=== PATIENT | male | born 1945 | race Caucasian/White ===

== ENCOUNTER → 2016-06-16 | Outpatient (CLI) | payer MEDICARE ==
[2016-06-16 17:53] LABS: ABSOLUTE BASOPHILS # (AUTO) 0.1 10^3/uL (0.0-0.2); ABSOLUTE EOSINOPHILS # (AUTO) 0.2 10^3/uL (0.0-0.6); ABSOLUTE LYMPHOCYTES (AUTO) 1.3 10^3/uL (0.5-4.7); ABSOLUTE MONOCYTES (AUTO) 0.4 10^3/uL (0.1-1.4); ABSOLUTE NEUT (AUTO) 5.3 10^3/uL (1.7-8.2); BASOPHILS % (AUTO) 0.9 % (0-2); EOSINOPHILS % (AUTO) 2.4 % (0-6); HEMATOCRIT 44.2 % (37.9-51.0); HGB HCT DIFFERENCE 0.8; LYMPHOCYTES % (AUTO) 18.1 % (13-45); MEAN CORPUSCULAR HEMOGLOBIN 30.3 pg (27.0-33.4); MEAN CORPUSCULAR HGB CONC 34.1 g/dL (32.0-36.0); MEAN CORPUSCULAR VOLUME 89 fl (80-97); MONOCYTES % (AUTO) 6.1 % (3-13); RED BLOOD COUNT 4.97 10^6/uL (4.35-5.55); RED CELL DISTRIBUTION WIDTH 13.3 % (11.5-14.0); SEGMENTED NEUTROPHILS % (AUTO) 72.5 % (42-78); WHITE BLOOD COUNT 7.3 10^3/uL (4.0-10.5)
== END ==
LOC: OD 15:56
PROVIDERS: ATTEND Specialist
DX: R10.9 Unspecified abdominal pain (principal); R97.0 Elevated carcinoembryonic antigen [CEA]
CPT/HCPCS: 36415; 82378; 85025

== ENCOUNTER 2016-11-29 12:34 | Emergency (ER) | payer MEDICARE ==
[2016-11-29] MEDS ORDERED: ASPIRIN 81 MG TABLET, CHEWABLE PO ONE (12:57)
--- NOTE | 2016-11-29 13:16 | EKG REPORT ---
SEVERITY:- OTHERWISE NORMAL ECG - SINUS RHYTHM BORDERLINE LEFT AXIS DEVIATION : Confirmed by: Jimmy Buenrostro MD 29-Nov-2016 13:16:01
--- NOTE | 2016-11-29 13:33 | ER Document Report ---
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 He states about 6 years ago he did have a heart catheterization that was unremarkable for any significant blockage. No other history of heart disease. TRAVEL OUTSIDE OF THE [place] IN LAST 30 DAYS: No - Related Data Allergies/Adverse Reactions: Sulfa (Sulfonamide Antibiotics) Allergy (Verified 11/07/14 15:02) Generalized rash Past Medical History - Social History Frequency of alcohol use: Daily, 4-5 cocktails Drug Abuse: None - Past Medical History Cardiac Medical History: Reports: Hx Hypercholesterolemia - DX A YEAR AGO, Hx Hypertension - ON MEDS Denies: Hx Heart Attack Pulmonary Medical History: Reports: Hx Pneumonia - OVER 40 YEARS AGO Denies: Hx Asthma Neurological Medical History: Denies: Hx Cerebrovascular Accident, Hx Seizures Renal/ Medical History: Denies: Hx Peritoneal Dialysis GI Medical History: Reports: Hx Gastroesophageal Reflux Disease - DX 20 YEARS AGO. Denies: Hx Hepatitis, Hx Hiatal Hernia, Hx Ulcer Infectious Medical History: Denies: Hx Hepatitis Past Surgical History: Reports: Hx Appendectomy, Hx Cardiac Catheterization, Hx Cholecystectomy, Hx Tonsillectomy. Denies: Hx Adenoidectomy, Hx Open Heart Surgery, Hx Pacemaker. Comment Only: Hx Abdominal Surgery - APPENDIX Physical Exam - Vital signs Vitals: Temp Pulse Resp BP Pulse Ox 98.9 F 84 18 113/85 97 11/29/16 12:54 11/29/16 12:54 11/29/16 12:54 11/29/16 12:54 11/29/16 12:54 Course - Vital Signs Vital signs: Temp Pulse Resp BP Pulse Ox 98.9 F 84 18 113/85 97 11/29/16 12:54 11/29/16 12:54 11/29/16 12:54 11/29/16 12:54 11/29/16 12:54
[2016-11-29 14:10] LABS: ABSOLUTE EOSINOPHILS # (AUTO) 0.1 10^3/uL (0.0-0.6); ABSOLUTE LYMPHOCYTES (AUTO) 1.5 10^3/uL (0.5-4.7); ABSOLUTE MONOCYTES (AUTO) 0.6 10^3/uL (0.1-1.4); BASOPHILS % (AUTO) 0.6 % (0-2); HEMATOCRIT 47.6 % (37.9-51.0); HEMOGLOBIN 16.1 g/dL (13.5-17.0); HGB HCT DIFFERENCE 0.7; LYMPHOCYTES % (AUTO) 20.2 % (13-45); MEAN CORPUSCULAR HEMOGLOBIN 30.8 pg (27.0-33.4); MEAN CORPUSCULAR HGB CONC 33.8 g/dL (32.0-36.0); MEAN CORPUSCULAR VOLUME 91 fl (80-97); MONOCYTES % (AUTO) 8.4 % (3-13); RED BLOOD COUNT 5.22 10^6/uL (4.35-5.55); RED CELL DISTRIBUTION WIDTH 13.1 % (11.5-14.0); SEGMENTED NEUTROPHILS % (AUTO) 68.8 % (42-78); WHITE BLOOD COUNT 7.2 10^3/uL (4.0-10.5)
--- NOTE | 2016-11-29 14:22 | RADIOLOGY REPORT (SQ) ---
EXAM DESCRIPTION: CHEST PA/LAT COMPLETED DATE/TIME: 11/29/2016 2:04 pm REASON FOR STUDY: left cp COMPARISON: None. EXAM PARAMETERS: NUMBER OF VIEWS: two views TECHNIQUE: Digital Frontal and Lateral radiographic views of the chest acquired. RADIATION DOSE: NA LIMITATIONS: none FINDINGS: LUNGS AND PLEURA: No opacities, masses or pneumothorax. No pleural effusion. MEDIASTINUM AND HILAR STRUCTURES: No masses or contour abnormalities. HEART AND VASCULAR STRUCTURES: Heart normal size. No evidence for failure. BONES: Osteoporotic. HARDWARE: Clips right upper quadrant post cholecystectomy. OTHER: No other significant finding. IMPRESSION: NO SIGNIFICANT RADIOGRAPHIC FINDING IN THE CHEST. TECHNICAL DOCUMENTATION: JOB ID: [id number] [email or web address] All Rights Reserved
[2016-11-29 14:37] LABS: ALANINE AMINOTRANSFERASE 34 U/L (21-72); ALBUMIN 4.3 g/dL (3.5-5.0); ALKALINE PHOSPHATASE 75 U/L (38-126); ANION GAP 12 (5-19); ASPARTATE AMINO TRANSFERASE 20 U/L (17-59); BILIRUBIN,DIRECT 0.3 mg/dL (0.0-0.4); BLOOD UREA NITROGEN 23 mg/dL (7-20); CALCIUM 10.6 mg/dL (8.4-10.2); CARBON DIOXIDE 24 mmol/L (22-30); CHLORIDE 107 mmol/L (98-107); GLUCOSE 97 mg/dL (75-110); POTASSIUM 4.6 mmol/L (3.6-5.0); SODIUM 142.5 mmol/L (137-145); TOTAL PROTEIN 6.9 g/dL (6.3-8.2)
--- NOTE | 2016-11-29 15:07 | ER Document Report ---
ED General - General Chief Complaint: Chest Pain > 30 Stated Complaint: CHEST PAIN Time Seen by Provider: 11/29/16 13:32 Notes: Patient states that several hours for arrival he had left-sided chest pain went to his left upper back. It was moderate. It was constant. He states it is gradually improving. He denies anything that makes the pain better except rest. He does state a deep breath or movement makes the pain worse. No cough cold or congestion. He states he did have a heart catheterization 6 years ago that was unremarkable. No evaluation since then. No history of DVTs. TRAVEL OUTSIDE OF THE [place] IN LAST 30 DAYS: No - Related Data Allergies/Adverse Reactions: Sulfa (Sulfonamide Antibiotics) Allergy (Verified 11/07/14 15:02) Generalized rash Past Medical History - Social History Smoking Status: Former Smoker Frequency of alcohol use: Daily, 4-5 cocktails Drug Abuse: None Lives with: Family Family History: Reviewed & Not Pertinent Patient has suicidal ideation: No Patient has homicidal ideation: No - Past Medical History Cardiac Medical History: Reports: Hx Hypercholesterolemia - DX A YEAR AGO, Hx Hypertension - ON MEDS Denies: Hx Heart Attack Pulmonary Medical History: Reports: Hx Pneumonia - OVER 40 YEARS AGO Denies: Hx Asthma Neurological Medical History: Denies: Hx Cerebrovascular Accident, Hx Seizures Renal/ Medical History: Denies: Hx Peritoneal Dialysis GI Medical History: Reports: Hx Gastroesophageal Reflux Disease - DX 20 YEARS AGO. Denies: Hx Hepatitis, Hx Hiatal Hernia, Hx Ulcer Infectious Medical History: Denies: Hx Hepatitis Past Surgical History: Reports: Hx Appendectomy, Hx Cardiac Catheterization, Hx Cholecystectomy, Hx Tonsillectomy. Denies: Hx Adenoidectomy, Hx Open Heart Surgery, Hx Pacemaker. Comment Only: Hx Abdominal Surgery - APPENDIX Review of Systems - Review of Systems Constitutional: denies: Chills, Fever Cardiovascular: Chest pain. denies: Orthopnea Respiratory: denies: Cough, Short of breath Gastrointestinal: denies: Abdominal pain, Vomiting Genitourinary: denies: Burning, Flank pain -: Yes All other systems reviewed and negative Physical Exam - Vital signs Vitals: Temp Pulse Resp BP Pulse Ox 98.9 F 84 18 113/85 97 11/29/16 12:54 11/29/16 12:54 11/29/16 12:54 11/29/16 12:54 11/29/16 12:54 Interpretation: Normal - General General appearance: Appears well, Alert - HEENT Head: Normocephalic, Atraumatic Eyes: Normal Pupils: PERRL - Respiratory Respiratory status: No respiratory distress Chest status: Nontender Breath sounds: Normal Chest palpation: Normal - Cardiovascular Rhythm: Regular Heart sounds: Normal auscultation Murmur: No - Abdominal Inspection: Normal Distension: No distension Bowel sounds: Normal Tenderness: Nontender Organomegaly: No organomegaly - Back Back: Normal, Nontender - Extremities General upper extremity: Normal inspection, Nontender, Normal color, Normal ROM , Normal temperature General lower extremity: Normal inspection, Nontender, Normal color, Normal ROM , Normal temperature, Normal weight bearing. No: Cole's sign - Neurological Neuro grossly intact: Yes Cognition: Normal Orientation: AAOx4 [place] Coma Scale Eye Opening: Spontaneous [place] Coma Scale Verbal: Oriented [place] Coma Scale Motor: Obeys Commands [place] Coma Scale Total: 15 Speech: Normal Motor strength normal: LUE, RUE, LLE, RLE Sensory: Normal - Psychological Associated symptoms: Normal affect, Normal mood - Skin Skin Temperature: Warm Skin Moisture: Dry Skin Color: Normal Course - Re-evaluation Re-evalutation: 11/29/16 16:09 2 sets neg. repeat ekg no mclaughlin. - Vital Signs Vital signs: Temp Pulse Resp BP Pulse Ox 98.9 F 84 18 113/85 97 11/29/16 12:54 11/29/16 12:54 11/29/16 12:54 11/29/16 12:54 11/29/16 12:54 - Laboratory Result Diagrams: 11/29/16 13:52 11/29/16 13:52 Laboratory results interpreted by me: 11/29/16 13:52 BUN 23 H Calcium 10.6 H - Diagnostic Test Radiology reviewed: Image reviewed, Reports reviewed - Chest x-ray has no significant acute pathology - EKG Interpretation by Mn EKG shows normal: Sinus rhythm Rate: Normal Rhythm: NSR Wel[place]/QRS: No: Right axis deviation, Left axis deviation When compared to previous EKG there are: No significant change Additional EKG results interpreted by me: 11/29/16 16:10 Repeat EKG shows a normal sinus rhythm. Rate is normal. There is no significant change from the previous EKG. Discharge - Discharge Clinical Impression: Acute chest pain Condition: Stable Disposition: HOME, SELF-CARE Instructions: Chest Pain of Unclear Cause ([facility]) Additional Instructions: Please follow-up with your primary care physician as soon as possible for reevaluation
[2016-11-29 16:19] VITALS: BP 115/88
--- NOTE | 2016-11-29 18:13 | EKG REPORT ---
SEVERITY:- BORDERLINE ECG - SINUS RHYTHM BORDERLINE LEFT AXIS DEVIATION NONSPECIFIC ST-T CHANGES- INFERIOR LEADS : Confirmed by: Jimmy Buenrostro MD 29-Nov-2016 18:13:06
== END 2016-11-29 16:19 | disposition home or self-care (01) ==
LOC: ER 12:34
DX: R07.9 Chest pain, unspecified (principal); Z87.891 Personal history of nicotine dependence; M54.6 Pain in thoracic spine
CPT/HCPCS: 36415; 71020; 80053; 84484; 85025; 93005; 93010; 99285

== ENCOUNTER 2017-08-29 15:58 | Emergency (ER) | payer OTHER, MEDICARE ==
[2017-08-29] MEDS ORDERED: LIDOCAINE 1%/EPINEPHRINE INJ 20 ML VIAL INJ ONE (16:57)
[2017-08-29] MEDS ORDERED: DIPH/PERTUSS(ACELL)/TETANUS VAC/PF 0.5 ML SYR (>=10YO) IM ONE ×2 (16:57→18:30)
--- NOTE | 2017-08-29 17:46 | ER Document Report ---
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 Onset: Sudden Duration: Just prior to arrival Severity: Mild to moderate Quality: Sharp Context: As above Exacerbating factor and relieving factors: None REVIEW OF SYSTEMS: CONSTITUTIONAL : Denies fever, chills, or sweats. Denies recent illness. EENT: Denies eye, ear, throat, or mouth pain or symptoms. Denies nasal or sinus congestion or discharge. Denies throat, tongue, or mouth swelling or difficulty swallowing. CARDIOVASCULAR: Denies chest pain. Denies palpitations or racing or irregular heart beat. Denies ankle edema. RESPIRATORY: Denies cough, cold, or chest congestion. Denies shortness of breath, difficulty breathing, or wheezing. GASTROINTESTINAL: Denies distention. Denies nausea, vomiting, or diarrhea. Denies blood in vomitus, stools, or per rectum. Denies black, tarry stools. Denies constipation. GENITOURINARY: Denies difficulty urinating, painful urination, burning, frequency, blood in urine, or discharge. FEMALE GENITOURINARY: Denies vaginal bleeding, heavy or abnormal periods, irregular periods. Denies vaginal discharge or odor. MUSCULOSKELETAL: Denies back or neck pain or stiffness. Denies joint pain or swelling. SKIN: Denies rash, lesions or sores. HEMATOLOGIC : Denies easy bruising or bleeding. LYMPHATIC: Denies swollen, enlarged glands. NEUROLOGICAL: Denies confusion or altered mental status. Denies passing out or loss of consciousness. Denies dizziness or lightheadedness. Denies headache. Denies weakness or paralysis or loss of use of either side. Denies problems with gait or speech. Denies sensory loss, numbness, or tingling. Denies seizures. PSYCHIATRIC: Denies anxiety or stress. Denies depression, suicidal ideation, or homicidal ideation. ALL OTHER SYSTEMS REVIEWED AND NEGATIVE. PHYSICAL EXAMINATION: GENERAL: Well-appearing, well-nourished and in no acute distress. HEAD: Atraumatic, normocephalic. EYES: Pupils equal round and reactive to light, extraocular movements intact, conjunctiva are normal. ENT: Nares patent, oropharynx clear without exudates. Moist mucous membranes. NECK: Normal range of motion, supple without lymphadenopathy LUNGS: Breath sounds clear to auscultation bilaterally and equal. No wheezes rales or rhonchi. HEART: Regular rate and rhythm without murmurs ABDOMEN: Soft, nontender, nondistended abdomen. No guarding, no rebound. No masses appreciated. Examination of genitals-deferred Musculoskeletal: Normal range of motion, no pitting or edema. No cyanosis. NEUROLOGICAL: Cranial nerves grossly intact. Normal speech, normal gait. Normal sensory, motor exams PSYCH: Normal mood, normal affect. SKIN: Left lower leg medial part of this clinic almost at the level of calf muscle, has a 6 cm linear laceration noted. No active bleeding Dictation was performed using [employer] voice recognition software left lower leg laceration TRAVEL OUTSIDE OF THE [place] IN LAST 30 DAYS: No - HPI Patient complains to provider of: Dictated - Related Data Allergies/Adverse Reactions: Sulfa (Sulfonamide Antibiotics) Allergy (Verified 08/29/17 15:59) Generalized rash Past Medical History - Social History Smoking Status: Unknown if Ever Smoked Cigarette use (# per day): No Chew tobacco use (# tins/day): No Smoking Education Provided: No Frequency of alcohol use: Rare Drug Abuse: None Lives with: Family Family History: Reviewed & Not Pertinent Patient has suicidal ideation: No Patient has homicidal ideation: No - Past Medical History Cardiac Medical History: Reports: Hx Hypercholesterolemia - DX A YEAR AGO, Hx Hypertension - ON MEDS Denies: Hx Heart Attack Pulmonary Medical History: Reports: Hx Pneumonia - OVER 40 YEARS AGO Denies: Hx Asthma Neurological Medical History: Denies: Hx Cerebrovascular Accident, Hx Seizures Renal/ Medical History: Denies: Hx Peritoneal Dialysis GI Medical History: Reports: Hx Gastroesophageal Reflux Disease - DX 20 YEARS AGO. Denies: Hx Hepatitis, Hx Hiatal Hernia, Hx Ulcer Infectious Medical History: Denies: Hx Hepatitis Past Surgical History: Reports: Hx Appendectomy, Hx Cardiac Catheterization, Hx Cholecystectomy, Hx Tonsillectomy. Denies: Hx Adenoidectomy, Hx Open Heart Surgery, Hx Pacemaker. Comment Only: Hx Abdominal Surgery - APPENDIX Review of Systems - Review of Systems Notes: Dictated Physical Exam - Vital signs Vitals: Temp Pulse Resp BP Pulse Ox 98.9 F 78 18 103/70 97 08/29/17 16:10 08/29/17 16:10 08/29/17 16:10 08/29/17 16:10 08/29/17 16:10 - Notes Notes: Dictated Course - Vital Signs Vital signs: Temp Pulse Resp BP Pulse Ox 98.9 F 78 18 103/70 97 08/29/17 16:10 08/29/17 16:10 08/29/17 16:10 08/29/17 16:10 08/29/17 16:10 Procedures - Laceration/Wound Repair Left Lower Leg Time completed: 17:00 Wound length (cm): 6 Wound's Depth, Shape: Into muscle Laceration pre-procedure: Sterile PPE donned Anesthetic type: 1% Lidocaine w/epi Volume Anesthetic (mLs): 8 Wound explored: Clean Wound Debrided: Minimal Wound Repaired With: Sutures Suture Size/Type: 3:0, Nylon Number of Sutures: 6 Layer Closure?: Yes Deep Layer Suture Size/Type: 4:0 Number Deep Layer Sutures: 2 Post-procedure wound care: Sterile dressing applied Post-procedure NV exam normal: No Complications: Yes Discharge - Discharge Clinical Impression: Laceration of leg Qualifiers: Encounter type: initial encounter Laterality: left Qualified Code(s): S81.812A - Laceration without foreign body, left lower leg, initial encounter Condition: Fair Disposition: ADMITTED INPATIENT Instructions: Laceration Care ([facility]) Additional Instructions: Suture removal in 12d Prescriptions: Cephalexin [Keflex] 500 mg PO TID #28 capsule
[2017-08-29 18:58] VITALS: BP 115/74
== END 2017-08-29 18:50 | disposition home or self-care (01) ==
LOC: ER 15:58
DX: S81.812A Laceration without foreign body, left lower leg, initial encounter (principal); W45.8XXA Other foreign body or object entering through skin, initial encounter; I10 Essential (primary) hypertension; Z88.2 Allergy status to sulfonamides
CPT/HCPCS: 99282; 90471; 90715; 12032; J3490

== ENCOUNTER 2018-12-16 16:55 | Emergency (ER) | payer OTHER, MEDICARE ==
--- NOTE | 2018-12-16 17:06 | ER Document Report ---
ED Medical Screen (RME) - General Chief Complaint: Trouble Voiding Stated Complaint: URINARY ISSUE Time Seen by Provider: 12/16/18 17:01 Primary Care Provider: DILCIA MONTGOMERY MD [Primary Care Provider] - Follow up as needed Information source: Patient Notes: Patient states that he just had prostate surgery 3 days ago due to BPH. Patient states he has had decreased ability to void starting since yesterday. Patient states he is only having a few drops of urine every hour. Patient denies any fever abdominal pain or back pain at this time. Patient had surgery performed in [facility]. I have greeted and performed a rapid initial assessment of this patient. A comprehensive ED assessment and evaluation of the patient, analysis of test results and completion of the medical decision making process will be conducted by additional ED providers. TRAVEL OUTSIDE OF THE [place] IN LAST 30 DAYS: No - Related Data Allergies/Adverse Reactions: Sulfa (Sulfonamide Antibiotics) Allergy (Verified 12/16/18 17:01) Generalized rash Past Medical History - Past Medical History Cardiac Medical History: Reports: Hx Hypercholesterolemia - DX A YEAR AGO, Hx Hypertension - ON MEDS Denies: Hx Heart Attack Pulmonary Medical History: Reports: Hx Pneumonia - OVER 40 YEARS AGO Denies: Hx Asthma Neurological Medical History: Denies: Hx Cerebrovascular Accident, Hx Seizures Renal/ Medical History: Denies: Hx Peritoneal Dialysis GI Medical History: Reports: Hx Gastroesophageal Reflux Disease - DX 20 YEARS AGO. Denies: Hx Hepatitis, Hx Hiatal Hernia, Hx Ulcer Infectious Medical History: Denies: Hx Hepatitis Past Surgical History: Reports: Hx Appendectomy, Hx Cardiac Catheterization, Hx Cholecystectomy, Hx Tonsillectomy. Denies: Hx Adenoidectomy, Hx Open Heart Surgery, Hx Pacemaker. Comment Only: Hx Abdominal Surgery - APPENDIX Physical Exam - Vital signs Vitals: Temp Pulse Resp BP Pulse Ox 98.5 F 77 16 137/92 H 97 12/16/18 17:00 12/16/18 17:00 12/16/18 17:00 12/16/18 17:00 12/16/18 17:00 - General General appearance: Appears well, Alert In distress: None Course - Vital Signs Vital signs: Temp Pulse Resp BP Pulse Ox 98.5 F 77 16 137/92 H 97 12/16/18 17:00 12/16/18 17:00 12/16/18 17:00 12/16/18 17:00 12/16/18 17:00 Doctor's Discharge - Discharge Referrals: DILCIA MONTGOMERY MD [Primary Care Provider] - Follow up as needed
[2018-12-16 17:29] LABS: ABSOLUTE EOSINOPHILS # (AUTO) 0.2 10^3/uL (0.0-0.6); ABSOLUTE LYMPHOCYTES (AUTO) 1.6 10^3/uL (0.5-4.7); ABSOLUTE MONOCYTES (AUTO) 0.6 10^3/uL (0.1-1.4); ABSOLUTE NEUT (AUTO) 4.4 10^3/uL (1.7-8.2); BASOPHILS % (AUTO) 0.5 % (0-2); EOSINOPHILS % (AUTO) 2.8 % (0-6); HEMATOCRIT 45.9 % (37.9-51.0); HEMOGLOBIN 15.4 g/dL (13.5-17.0); LYMPHOCYTES % (AUTO) 23.6 % (13-45); MEAN CORPUSCULAR HEMOGLOBIN 29.2 pg (27.0-33.4); MEAN CORPUSCULAR HGB CONC 33.4 g/dL (32.0-36.0); MEAN CORPUSCULAR VOLUME 87 fl (80-97); MONOCYTES % (AUTO) 8.2 % (3-13); PLATELET COUNT 250 10^3/uL (150-450); RED BLOOD COUNT 5.26 10^6/uL (4.35-5.55); RED CELL DISTRIBUTION WIDTH 14.7 % (11.5-14.0); SEGMENTED NEUTROPHILS % (AUTO) 64.9 % (42-78); TOTAL CELLS COUNTED % (AUTO) 100 %; WHITE BLOOD COUNT 6.8 10^3/uL (4.0-10.5)
--- NOTE | 2018-12-16 17:32 | ER Document Report ---
ED General - General Chief Complaint: Trouble Voiding Stated Complaint: URINARY ISSUE Time Seen by Provider: 12/16/18 17:01 Primary Care Provider: DILCIA MONTGOMERY MD [Primary Care Provider] - Follow up as needed TRAVEL OUTSIDE OF THE [place] IN LAST 30 DAYS: No - HPI Notes: Patient is a 73-year-old male with a history of BPH and hypertension who presents complaining of incomplete void, voiding small amounts that started developing over the past 24 hours. Patient had a uro-lift procedure performed by Jane Lisa 3 days ago in clinic. Patient states that he was urinating r eally well immediately thereafter, but slowly started developing weaker stream and now drops. He is otherwise able to eat and drink without difficulty. He is having normal bowel movements. No other concerns or complaints. Denies any headache, fever, neck pain, URI, sore throat, chest pain, palpitations, syncope, cough, shortness of breath, wheeze, dyspnea, nausea/vomiting/diarrhea, back pain, loss of control of bowel or bladder, numbness/tingling, saddle anesthesia, muscle paralysis/weakness, or rash. - Related Data Allergies/Adverse Reactions: Sulfa (Sulfonamide Antibiotics) Allergy (Verified 12/16/18 17:01) Generalized rash Past Medical History - General Information source: Patient - Social History Smoking Status: Former Smoker Family History: Reviewed & Not Pertinent Patient has suicidal ideation: No Patient has homicidal ideation: No - Past Medical History Cardiac Medical History: Reports: Hx Hypercholesterolemia - DX A YEAR AGO, Hx Hypertension - ON MEDS Denies: Hx Heart Attack Pulmonary Medical History: Reports: Hx Pneumonia - OVER 40 YEARS AGO Denies: Hx Asthma Neurological Medical History: Denies: Hx Cerebrovascular Accident, Hx Seizures Renal/ Medical History: Denies: Hx Peritoneal Dialysis GI Medical History: Reports: Hx Gastroesophageal Reflux Disease - DX 20 YEARS AGO. Denies: Hx Hepatitis, Hx Hiatal Hernia, Hx Ulcer Infectious Medical History: Denies: Hx Hepatitis Past Surgical History: Reports: Hx Appendectomy, Hx Cardiac Catheterization, Hx Cholecystectomy, Hx Tonsillectomy. Denies: Hx Adenoidectomy, Hx Open Heart Surgery, Hx Pacemaker. Comment Only: Hx Abdominal Surgery - APPENDIX Review of Systems - Review of Systems -: Yes All other systems reviewed and negative Physical Exam - Vital signs Vitals: Temp Pulse Resp BP Pulse Ox 98.5 F 77 16 137/92 H 97 12/16/18 17:00 12/16/18 17:00 12/16/18 17:00 12/16/18 17:00 12/16/18 17:00 - Notes Notes: PHYSICAL EXAMINATION: GENERAL: Well-appearing, well-nourished and in no acute distress. LUNGS: Breath sounds clear to auscultation bilaterally and equal. No wheezes rales or rhonchi. HEART: Regular rate and rhythm without murmurs, rubs, gallops. ABDOMEN: Soft, nontender, nondistended abdomen. No guarding, no rebound. Normal bowel sounds present. No CVA tenderness bilaterally. Musculoskeletal: FROM to passive/active. Strength 5+/5. Extremities: No cyanosis, clubbing, or edema b/l. Peripheral pulses 2+. Capillary refill less than 3 seconds. NEUROLOGICAL: Normal speech, normal gait. PSYCH: Normal mood, normal affect. SKIN: Warm, Dry, normal turgor, no rashes or lesions noted. Course - Re-evaluation Re-evalutation: 12/16/18 17:35 Post-void residual of 292cc's on bladder scanner. Will call [facility] for consult, probable keita placement. 12/16/18 17:[address] Salazar (who was the one who performed the procedure): He would like us to perform a UA and place a keita with an 18g Fr. Coude and nothing smaller. Call his office tomorrow morning to schedule f/u. Treat with keflex if any bacteria noted. 12/16/18 19:19 Patient is an afebrile, well-hydrated, 73-year-old male who presents with urinary retention. Vitals are acceptable without significant tachycardia, tachypnea, or hypoxia. PE is otherwise unremarkable. Patient's abdomen is soft and nontender throughout. Keita catheter was placed and 300+ cc removed. Patient is feeling much better. Keita will remain in place and leg bag provided. Urine shows possible urinary infection. We will send him home on Keflex. No further work-up warranted at this time. Patient is nontoxic- appearing and is tolerating p.o. without difficulty. Low suspicion/risk for acute appendicitis, bowel obstruction, acute cholecystitis, perforated diverticulitis, incarcerated hernia, pancreatitis, perforated ulcer, peritonitis, sepsis, testicular torsion, or other systemic emergent condition at this time. Patient is aware that his condition can change from initial presentation and he needs to monitor symptoms closely and seek medical attention if any acute changes. Conservative measures otherwise for symptoms. Recheck with PCM in 3-5 days. Call your urologist's office tomorrow morning to schedule an appointment. Return to the ED with any worsening/concerning symptoms otherwise as reviewed in discharge. Patient is in agreement. - Vital Signs Vital signs: Temp Pulse Resp BP Pulse Ox 98.5 F 77 16 137/92 H 97 12/16/18 17:00 12/16/18 17:00 12/16/18 17:00 12/16/18 17:00 12/16/18 17:00 - Laboratory Result Diagrams: 12/16/18 17:12 12/16/18 17:12 Laboratory results interpreted by me: 12/16/18 12/16/18 17:12 18:39 RDW 14.7 H Urine Ketones TRACE H Urine Blood MODERATE H Urine Nitrite (Reflex) POSITIVE H Urine Urobilinogen 4.0 H Discharge - Discharge Clinical Impression: Urinary retention, Acute UTI (urinary tract infection) Condition: Stable Disposition: HOME, SELF-CARE Instructions: Cephalexin ([facility]) Additional Instructions: Maintain adequate fluid intake Proper hygenic technique Keep the skin clean Tylenol/ibuprofen as needed Take medications as directed F/u with your PCM in 3-5 days for a recheck Call your urologist's office tomorrow morning to schedule an appointment for follow-up* Return to the ED with any worsening symptoms and/or development of fever, headache, chest pain, palpitations, syncope, shortness of breath, trouble breathing, abdominal pain, n/v/d, blood in stool/urine, loss of control of bowel/bladder, urinary retention, or other worsening symptoms that are concerning to you. Prescriptions: Cephalexin Monohydrate [Keflex 500 mg Capsule] 500 mg PO TID #21 capsule Forms: Elevated Blood Pressure Referrals: DILCIA MONTGOMERY MD [Primary Care Provider] - Follow up as needed MALCOM SALAZAR MD [NO LOCAL MD] - Follow up in 3-5 days
[2018-12-16 17:47] LABS: ANION GAP 8 (5-19); BLOOD UREA NITROGEN 17 mg/dL (7-20); CALCIUM 9.8 mg/dL (8.4-10.2); CARBON DIOXIDE 25 mmol/L (22-30); CHLORIDE 107 mmol/L (98-107); GLUCOSE 93 mg/dL (75-110); POTASSIUM 4.2 mmol/L (3.6-5.0)
[2018-12-16] MEDS ORDERED: LIDOCAINE 2% URO-JET 5 ML KIT MM ONE (18:07)
[2018-12-16 19:08] LABS: APPEARANCE,URINE CLEAR; BILIRUBIN,URINE NEGATIVE (NEGATIVE); COLOR,URINE AMBER; GLUCOSE, URINE NEGATIVE (NEGATIVE); KETONES,URINE TRACE mg/dL (NEGATIVE); PROTEIN,URINE NEGATIVE (NEGATIVE); URINE SPECIFIC GRAVITY 1.011
[2018-12-16 20:01] VITALS: BP 106/72
== END 2018-12-16 20:02 | disposition home or self-care (01) ==
LOC: ER 16:55
DX: N39.0 Urinary tract infection, site not specified (principal); R33.9 Retention of urine, unspecified; E78.00 Pure hypercholesterolemia, unspecified; I10 Essential (primary) hypertension; Z88.2 Allergy status to sulfonamides; Z90.49 Acquired absence of other specified parts of digestive tract
CPT/HCPCS: 99283; 51702; 36415; 87086; 85025; 80048; 81001; J3490

== ENCOUNTER → 2019-04-05 | Outpatient (CLI) | payer MEDICARE ==
--- NOTE | 2019-04-05 14:45 | RADIOLOGY REPORT (SQ) ---
EXAM DESCRIPTION: CT ABD/PELVIS WITH IV ORAL COMPLETED DATE/TIME: 04/05/2019 11:05 am REASON FOR STUDY: R10.32 LEFT LOWER QUADRANT PAIN, K63.89 OTHER SPECIFIED DISEASES OF INTESTI R10.32 LEFT LOWER QUADRANT PAIN K63.89 OTHER SPECIFIED DISEASES OF INTESTINE COMPARISON: CT of the abdomen and pelvis from 12/07/2006. TECHNIQUE: CT scan of the abdomen and pelvis performed using helical scanning technique with dynamic intravenous contrast injection. No oral contrast. Images reviewed with lung, soft tissue, and bone windows. Reconstructed coronal and sagittal MPR images reviewed. Delayed images for evaluation of the urinary system also acquired. All images stored on PACS. All CT scanners at this facility use dose modulation, iterative reconstruction, and/or weight based d osing when appropriate to reduce radiation dose to as low as reasonably achievable (ALARA). [facility]: Dose Right [facility]: CareDose [facility]: Dose Right [facility]: Teradose 4D [facility]: Adomik CONTRAST TYPE AND DOSE: Contrast/concentration: Isovue 350.00 mg/ml; Total Contrast Delivered: 100.0 ml; Total Saline Delivered: 72.0 ml RENAL FUNCTION: Creatinine 0.9 milligrams/deciliter. RADIATION DOSE: CT Rad equipment meets quality standard of care and radiation dose reduction techniq ues were employed. CTDIvol: 10.9 - 10.9 mGy. DLP: 1242 mGy-cm.. LIMITATIONS: None. FINDINGS: LOWER CHEST: 14 x 10 mm nodule in the lingula (image 11 of series 4) that has increased in size from 12/07/2006. There is no basilar consolidation or pleural effusion. LIVER: The relative hypoattenuation hepatic parenchyma compared to the splenic parenchyma on the port al venous phase is suggestive of hepatic steatosis. The subcentimeter hypodensity within the left he patic lobe is too small to characterize. The geographic area of hypoattenuation along the falciform ligament is nonspecific and could represent a perfusion variant. SPLEEN: No splenomegaly or splenic mass. There are 2 accessory splenules inferior to the spleen. PANCREAS: No acute abnormality. GALLBLADDER: The gallbladder surgically absent. ADRENAL GLANDS: No mass or asymmetry. RIGHT KIDNEY AND URETER: No solid masses. No calcifications. No hydronephrosis or hydroureter. LEFT KIDNEY AND URETER: No solid masses. No calcifications. No hydronephrosis or hydroureter. AORTA AND VESSELS: No aneurysm or dissection of the abdominal aorta. RETROPERITONEUM: No retroperitoneal adenopathy, hemorrhage or mass. BOWEL AND PERITONEAL CAVITY: Colonic diverticulosis without diverticulitis. There is no bowel obstru ction, bowel wall thickening or pericolonic/ perienteric inflammation. There is no mesenteric adenop athy, free intraperitoneal fluid or mesenteric/ omental inflammation. APPENDIX: Unable to identify the appendix. PELVIS: The prostate gland is heterogeneous with posterior calcifications. There are fiducial marker s or surgical clips around the prostate gland. The urinary bladder is partially distended. ABDOMINAL WALL: No masses or hernias. BONES: No fracture or osseous lesion. OTHER: No other finding. IMPRESSION: 1. No acute intra-abdominal abnormality. 2. 14 x 10 mm nodule in the lingula (image 11 of series 4) that has increased in size from 7. Consider further evaluation with a contrast-enhanced CT of the chest. 3. Other findings as detailed above. TECHNICAL DOCUMENTATION: JOB ID: [id number] Quality ID # [id number]: Final reports with documentation of one or more dose reduction techniques (e.g., Au tomated exposure control, adjustment of the mA and/or kV according to patient size, use of iterative reconstruction technique) 2010 [employer]- All Rights Reserved Reading location - IP/workstation name: [email or web address]
== END ==
LOC: RAD 09:49
PROVIDERS: ATTEND Surgery
DX: R10.32 Left lower quadrant pain (principal); K63.89 Other specified diseases of intestine
CPT/HCPCS: 74177; 82565

== ENCOUNTER 2019-05-23 05:23 | Inpatient (IN) | payer MEDICARE ==
[2019-05-20 11:11] LABS: ABSOLUTE EOSINOPHILS # (AUTO) 0.1 10^3/uL (0.0-0.6); ABSOLUTE LYMPHOCYTES (AUTO) 1.1 10^3/uL (0.5-4.7); ABSOLUTE MONOCYTES (AUTO) 0.4 10^3/uL (0.1-1.4); ABSOLUTE NEUT (AUTO) 2.9 10^3/uL (1.7-8.2); BASOPHILS % (AUTO) 0.6 % (0-2); EOSINOPHILS % (AUTO) 2.5 % (0-6); HEMATOCRIT 45.9 % (37.9-51.0); HEMOGLOBIN 15.7 g/dL (13.5-17.0); LYMPHOCYTES % (AUTO) 24.4 % (13-45); MEAN CORPUSCULAR HEMOGLOBIN 30.1 pg (27.0-33.4); MEAN CORPUSCULAR HGB CONC 34.1 g/dL (32.0-36.0); MEAN CORPUSCULAR VOLUME 88 fl (80-97); MONOCYTES % (AUTO) 8.9 % (3-13); PLATELET COUNT 243 10^3/uL (150-450); RED BLOOD COUNT 5.19 10^6/uL (4.35-5.55); RED CELL DISTRIBUTION WIDTH 14.5 % (11.5-14.0); SEGMENTED NEUTROPHILS % (AUTO) 63.6 % (42-78); TOTAL CELLS COUNTED % (AUTO) 100 %; WHITE BLOOD COUNT 4.6 10^3/uL (4.0-10.5)
[2019-05-20 11:16] LABS: ANION GAP 5 (5-19); BLOOD UREA NITROGEN 20 mg/dL (7-20); CALCIUM 10.2 mg/dL (8.4-10.2); CARBON DIOXIDE 28 mmol/L (22-30); CHLORIDE 107 mmol/L (98-107); GLUCOSE 99 mg/dL (75-110); POTASSIUM 4.6 mmol/L (3.6-5.0)
[~2019-05-23 05:23] MED LIST: CEFAZOLIN SODIUM 2 GM in DEXTROSE 5%-WATER 100 ML IV PRN; LACTATED RINGERS 1000 ML IV PRN; LIDOCAINE 0.5% INJ-PF (5 MG/ML) 50 ML SDV SUBCUT PRN; METRONIDAZOLE 500 MG/NS RTU 500 MG/100 ML RTUPB IV PRN
[2019-05-23] MEDS ORDERED: METRONIDAZOLE 500 MG/NS RTU 500 MG/100 ML RTUPB IV ONE (06:15)
[2019-05-23] MEDS ORDERED: MIDAZOLAM 2 MG/2 ML INJ ONE (06:46)
[2019-05-23] MEDS ORDERED: DEXAMETHASONE SOD PHOSPHATE INJ 4 MG/1 ML VIAL ONE (06:46)
[2019-05-23] MEDS ORDERED: HYDROMORPHONE HCL INJ/PF 2 MG/ML AMPULE ONE (06:46)
[2019-05-23] MEDS ORDERED: ONDANSETRON HCL INJ/PF 4 MG/2 ML SDV ONE (06:46)
[2019-05-23] MEDS ORDERED: FENTANYL CITRATE INJ/PF 250 MCG/5 ML AMPULE ONE (06:46)
[2019-05-23] MEDS ORDERED: PROPOFOL INJ 200 MG/20 ML VIAL IV ONE (06:47)
[2019-05-23] MEDS ORDERED: EPHEDRINE SULFATE INJ 50 MG/1 ML AMPULE ONE (07:50)
[2019-05-23] MEDS ORDERED: DIPHENHYDRAMINE HCL 50 MG/ML VIAL IV PRN (08:18)
[2019-05-23] MEDS ORDERED: FENTANYL CITRATE INJ/PF 100 MCG/2 ML AMPUL IV PRN ×3 (08:18)
[2019-05-23] MEDS ORDERED: MORPHINE SULFATE 10 MG/ML INJ IV PRN ×2 (08:18→10:44)
[2019-05-23] MEDS ORDERED: PROMETHAZINE HCL INJ 25 MG/1 ML VIAL IV PRN (08:18)
[2019-05-23] MEDS ORDERED: MEPERIDINE HCL/PF INJ 25 MG/1 ML DISP.SYRIN IV PRN (08:18)
[2019-05-23] MEDS ORDERED: ONDANSETRON HCL INJ/PF 4 MG/2 ML SDV IV PRN (10:44)
--- NOTE | 2019-05-23 10:44 | Operative Report ---
Nonrecallable Operative Report DATE OF SURGERY: 05/23/19 PREOPERATIVE DIAGNOSIS: Sigmoid colon mass POSTOPERATIVE DIAGNOSIS: Sigmoid colon mass OPERATION: Laparoscopic sigmoid colectomy SURGEON: LUCINDA ZAVALA 1ST [employer]AYING MACHINE OPERATOR: STONEY DARLING ANESTHESIA: GA TISSUE REMOVED OR ALTERED: Descending and sigmoid colon COMPLICATIONS: None ESTIMATED BLOOD LOSS: 50 cc INTRAOPERATIVE FINDINGS: See dictation PROCEDURE: Patient was brought to the operating room and awake alert stable condition placed in the operative table supine position induced under general anesthesia intubated. He was then placed in a low lithotomy position. After appropriate prep and drape and surgical timeout the procedure commenced.. A supraumbilical 10 mm incision was made with a 15 blade and a 10 and a varies needle was placed in the abdominal cavity was insufflated with 6 L of CO2 gas. A 10 mm port was then placed into that incision intra-abdominal visualization revealed no evidence of Veress needle trocar injury. A right lower quadrant 12 mm port placed under direct vision a right-sided 5 mm port and left-sided 5 mm port all under direct vision. Patient was then placed in Trendelenburg position. We identified the descending and sigmoid colon mobilized along the white line of [place]t with the LigaSure device. We carried our dissection down into the towards the pelvis and identified the left ureter. I mobilized the proximal rectum. And we then identified the fact that the mass that was tattooed was in the proximal sigmoid colon and therefore this did not lend itself to a coloproctostomy and therefore I elected to mobilize the descending colon cecum and perform a and then sutured anastomosis extra peritoneal. We mobilized the mesentery divided the inferior mesenteric artery with the LigaSure device and mobilized the proximal descending colon towards the splenic flexure. Once this was done we are had the colon mobilized the mesentery was divided close to the aorta and this allowed us to deliver the sigmoid colon descending colon through a left-sided abdominal incision. We made a transverse incision in the left abdominal wall with the 10 blade and carried our dissection down through subcutaneous tissue with Bovie cautery the muscle and fascia of the external and internal oblique were divided with Bovie cautery we placed a Keiry device and then allowed us to deliver the descending and sigmoid colon through that wound. It came across the distal descending colon with one firing of the BIB stapler with a blue load and then came across the distal sigmoid proximal rectum with one firing of the BIB stapler with a blue load. Once this was done the specimen was removed. We then performed a coloproctostomy sutured in 2 layers. The serosal layer backwall was done with interrupted 2 oh silks the running inner layer was done with a 3-0 Vicryl in the outer layer again was done with 2 oh silks. We returned the anastomosis back to the abdominal cavity. We then closed the left lower quadrant incision in 2 layers the peritoneum was closed separately with a running 0 Vicryl and then the muscular layer was closed with interrupted #2 Vicryl sutures. Once this was done we reinsufflated the abdominal cavity placed the scope back and placed a bowel clamp proximal to the anastomosis and then instilled air into the rectum and allow the anastomosis to lie under saline irrigation. The anastomosis distended and there was no evidence of any air leak. We then suctioned free the irrigant and closed the other fascial incisions that were 10 mm ports with 0 Vicryl and then we closed all skin incisions with standard skin clips. The specimen was opened on the back wall and we identified the mass at the midportion of the specimen. Sterile dressings were then applied on all the incisions which completed the operation. Estimated blood loss for the procedure was less than 50 cc sponge needle counts were correct x2 the patient was awakened in the operating extubated and transferred recovery in stable condition no complications. LILIAM Severino was present for the entire case for help with wound retraction wound closure.
[2019-05-23] MEDS ORDERED: CEFAZOLIN 2 GM/D5W RTU 2 GM/50 ML RTUPB IV SCH (12:00)
[2019-05-23] MEDS ORDERED: ACETAMINOPHEN INJ/PF 1000 MG/100 ML SDV IV SCH (12:00)
[2019-05-23] MEDS: POTASSI CL 20 MEQ/D5-1/2NS 1L 1,000 ML IV PRN (12:21)
[2019-05-23] MEDS: METRONIDAZOLE 500 MG/NS RTU 500 MG/100 ML RTUPB IV SCH ×2 (12:21→18:29)
[2019-05-23] MEDS ORDERED: SUCCINYLCHOLINE CHLORIDE INJ 200 MG/10 ML VIAL ONE (14:21)
[2019-05-23] MEDS ORDERED: ROCURONIUM BROMIDE INJ 50 MG/5 ML VIAL IV ONE (14:21)
[2019-05-23] MEDS ORDERED: PHENYLEPHRINE HCL INJ/PF 10 MG/1 ML SDV ONE (14:21)
[2019-05-23] MEDS: ACETAMINOPHEN 1,000 MG/100 ML RTUPB IV SCH ×3 (14:30→23:55)
[2019-05-23] MEDS: CEFAZOLIN SODIUM 2 GM in DEXTROSE 5%-WATER 100 ML IV SCH ×2 (15:25→17:59)
[2019-05-23] MEDS: HEPARIN SOD (PORCINE) 5,000 UNIT/ML 1 ML VIAL SUBCUT SCH ×2 (15:25→21:40)
[2019-05-23] MEDS: FAMOTIDINE INJ/PF 20 MG/2 ML SDV IV SCH (21:42)
[2019-05-24] MEDS: CEFAZOLIN SODIUM 2 GM in DEXTROSE 5%-WATER 100 ML IV SCH ×5 (00:08→23:39)
[2019-05-24] MEDS: METRONIDAZOLE 500 MG/NS RTU 500 MG/100 ML RTUPB IV SCH ×5 (00:08→23:40)
[2019-05-24] MEDS: POTASSI CL 20 MEQ/D5-1/2NS 1L 1,000 ML IV PRN ×2 (01:13→15:44)
[2019-05-24] MEDS: HEPARIN SOD (PORCINE) 5,000 UNIT/ML 1 ML VIAL SUBCUT SCH ×3 (05:10→23:36)
[2019-05-24] MEDS: ACETAMINOPHEN 1,000 MG/100 ML RTUPB IV SCH ×4 (05:10→23:40)
[2019-05-24 06:57] LABS: ABSOLUTE LYMPHOCYTES (AUTO) 1.1 10^3/uL (0.5-4.7); ABSOLUTE MONOCYTES (AUTO) 0.8 10^3/uL (0.1-1.4); ABSOLUTE NEUT (AUTO) 6.8 10^3/uL (1.7-8.2); BASOPHILS % (AUTO) 0.3 % (0-2); EOSINOPHILS % (AUTO) 0.1 % (0-6); HEMATOCRIT 37.9 % (37.9-51.0); HEMOGLOBIN 13.3 g/dL (13.5-17.0); LYMPHOCYTES % (AUTO) 12.9 % (13-45); MEAN CORPUSCULAR HEMOGLOBIN 30.8 pg (27.0-33.4); MEAN CORPUSCULAR HGB CONC 35.1 g/dL (32.0-36.0); MEAN CORPUSCULAR VOLUME 88 fl (80-97); MONOCYTES % (AUTO) 9.3 % (3-13); PLATELET COUNT 197 10^3/uL (150-450); RED BLOOD COUNT 4.32 10^6/uL (4.35-5.55); RED CELL DISTRIBUTION WIDTH 14.2 % (11.5-14.0); SEGMENTED NEUTROPHILS % (AUTO) 77.4 % (42-78); TOTAL CELLS COUNTED % (AUTO) 100 %; WHITE BLOOD COUNT 8.8 10^3/uL (4.0-10.5)
[2019-05-24 07:04] LABS: ANION GAP 6 (5-19); BLOOD UREA NITROGEN 12 mg/dL (7-20); CALCIUM 9.2 mg/dL (8.4-10.2); CARBON DIOXIDE 22 mmol/L (22-30); CHLORIDE 107 mmol/L (98-107); GLUCOSE 111 mg/dL (75-110); POTASSIUM 3.4 mmol/L (3.6-5.0)
[2019-05-24] MEDS ORDERED: TAMSULOSIN HCL 0.4 MG CAP.SR.24H PO ONE (09:03)
[2019-05-24] MEDS ORDERED: LORAZEPAM INJ 2 MG/1 ML VIAL IV PRN (09:17)
--- NOTE | 2019-05-24 09:17 | PDOC PROGRESS REPORT ---
Subjective Progress Note for:: 05/24/19 Subjective:: feels ok this am didnt sleep Reason For Visit: K63.89 OTHER SPECIFIED DISEASES OF INTESTINE Physical Exam Vital Signs: Temp Pulse Resp BP Pulse Ox 99.2 F 64 20 120/75 95 05/24/19 07:20 05/24/19 07:20 05/24/19 07:20 05/24/19 07:20 05/24/19 07:20 Intake & Output 05/23/19 05/24/19 05/25/19 06:59 06:59 06:59 Intake Total 0 5630 Output Total 2605 Balance 0 3025 Weight 93.2 kg General appearance: PRESENT: no acute distress Eye exam: PRESENT: EOMI Mouth exam: PRESENT: moist Neck exam: PRESENT: full ROM Respiratory exam: PRESENT: clear to auscultation [place] Cardiovascular exam: PRESENT: RRR Pulses: PRESENT: normal radial pulses, +2 pedal pulses bilateral Breast: PRESENT: Normal GI/Abdominal exam: PRESENT: soft Rectal exam: PRESENT: deferred Extremities exam: PRESENT: full ROM Musculoskeletal exam: PRESENT: full ROM Neurological exam: PRESENT: alert, awake, oriented to person, oriented to place Psychiatric exam: PRESENT: anxious, appropriate affect Skin exam: PRESENT: dry Results Laboratory Results: 05/24/19 06:30 05/24/19 06:30 05/24/19 05/24/19 06:30 06:30 WBC 8.8 RBC 4.32 L Hgb 13.3 L Hct 37.9 MCV 88 MCH 30.8 MCHC 35.1 RDW 14.2 H Plt Count 197 Seg Neutrophils % 77.4 Sodium 134.7 L Potassium 3.4 L Chloride 107 Carbon Dioxide 22 Anion Gap 6 BUN 12 Creatinine 0.82 Est GFR ( Amer) > 60 Glucose 111 H Calcium 9.2 Assessment & Plan - Plan Summary Plan Summary: pod 1 s/p left partial hemicolectomy doing ok will start bph meds ativan
[2019-05-24] MEDS: FAMOTIDINE INJ/PF 20 MG/2 ML SDV IV SCH ×2 (09:50→23:36)
[2019-05-24] MEDS: FINASTERIDE 5 MG TABLET PO SCH (09:50)
[2019-05-24] MEDS ORDERED: ONDANSETRON HCL INJ/PF 4 MG/2 ML SDV IV PRN (15:00)
[2019-05-24] MEDS ORDERED: ZOLPIDEM TARTRATE 5 MG TABLET PO PRN (19:38)
[2019-05-25] MEDS: METRONIDAZOLE 500 MG/NS RTU 500 MG/100 ML RTUPB IV SCH ×3 (06:00→19:37)
[2019-05-25] MEDS: HEPARIN SOD (PORCINE) 5,000 UNIT/ML 1 ML VIAL SUBCUT SCH ×3 (06:00→21:13)
[2019-05-25] MEDS: CEFAZOLIN SODIUM 2 GM in DEXTROSE 5%-WATER 100 ML IV SCH ×3 (06:00→21:13)
[2019-05-25] MEDS: ACETAMINOPHEN 1,000 MG/100 ML RTUPB IV SCH ×3 (06:01→19:15)
--- NOTE | 2019-05-25 08:37 | PDOC PROGRESS REPORT ---
Subjective Progress Note for:: 05/25/19 Subjective:: feels better slept some Reason For Visit: K63.89 OTHER SPECIFIED DISEASES OF INTESTINE Physical Exam Vital Signs: Temp Pulse Resp BP Pulse Ox 98.9 F 70 18 142/79 H 92 05/24/19 23:17 05/24/19 23:17 05/24/19 23:17 05/24/19 23:17 05/24/19 23:17 Intake & Output 05/24/19 05/25/19 05/26/19 06:59 06:59 06:59 Intake Total 5630 2580 100 Output Total 2605 4674 Balance 3025 -2090 100 Weight 93.2 kg 94 kg General appearance: PRESENT: no acute distress Head exam: PRESENT: normocephalic Eye exam: PRESENT: EOMI Mouth exam: PRESENT: moist Neck exam: PRESENT: full ROM Respiratory exam: PRESENT: clear to auscultation [place] Cardiovascular exam: PRESENT: RRR Pulses: PRESENT: normal femoral pulses, normal dorsalis pedis pul Vascular exam: PRESENT: normal capillary refill Breast: PRESENT: Normal GI/Abdominal exam: PRESENT: soft Rectal exam: PRESENT: deferred Gentrourinary exam: PRESENT: indwelling catheter Extremities exam: PRESENT: full ROM Musculoskeletal exam: PRESENT: full ROM Neurological exam: PRESENT: alert, awake, oriented to person, oriented to place Psychiatric exam: PRESENT: appropriate affect Skin exam: PRESENT: dry Results Laboratory Results: 05/24/19 06:30 05/24/19 06:30 Assessment & Plan - Plan Summary Plan Summary: s/p partial decending/sigmoid colectomy doing better now passing some flatus and small amt of stool plan advance to full lioquids..
[2019-05-25] MEDS: FAMOTIDINE INJ/PF 20 MG/2 ML SDV IV SCH ×2 (10:38→21:13)
[2019-05-25] MEDS: FINASTERIDE 5 MG TABLET PO SCH (10:38)
[2019-05-26] MEDS: POTASSI CL 20 MEQ/D5-1/2NS 1L 1,000 ML IV PRN (00:36)
[2019-05-26] MEDS: CEFAZOLIN SODIUM 2 GM in DEXTROSE 5%-WATER 100 ML IV SCH ×2 (01:20→05:20)
[2019-05-26] MEDS: ACETAMINOPHEN 1,000 MG/100 ML RTUPB IV SCH ×2 (01:20→05:19)
[2019-05-26] MEDS: METRONIDAZOLE 500 MG/NS RTU 500 MG/100 ML RTUPB IV SCH ×2 (01:20→05:19)
[2019-05-26] MEDS: HEPARIN SOD (PORCINE) 5,000 UNIT/ML 1 ML VIAL SUBCUT SCH (05:20)
--- NOTE | 2019-05-26 08:59 | PDOC PROGRESS REPORT ---
Subjective Progress Note for:: 05/26/19 Subjective:: feels ok\ passing flatus Reason For Visit: K63.89 OTHER SPECIFIED DISEASES OF INTESTINE Physical Exam Vital Signs: Temp Pulse Resp BP Pulse Ox 98.9 F 68 16 150/98 H 94 05/26/19 07:43 05/26/19 07:43 05/26/19 07:43 05/26/19 07:43 05/26/19 07:43 Intake & Output 05/25/19 05/26/19 05/27/19 06:59 06:59 06:59 Intake Total 3580 3120 Output Total 4675 840 Balance -1095 2280 Weight 94 kg 91.7 kg General appearance: PRESENT: no acute distress Head exam: PRESENT: normocephalic Eye exam: PRESENT: EOMI Ear exam: PRESENT: TM's normal bilaterally Mouth exam: PRESENT: moist Neck exam: PRESENT: full ROM Respiratory exam: PRESENT: clear to auscultation [place] Cardiovascular exam: PRESENT: RRR Pulses: PRESENT: normal radial pulses, normal femoral pulses GI/Abdominal exam: PRESENT: soft - softly distended Rectal exam: PRESENT: deferred Extremities exam: PRESENT: full ROM Musculoskeletal exam: PRESENT: ambulatory, full ROM Neurological exam: PRESENT: alert, awake, oriented to person, oriented to place Psychiatric exam: PRESENT: appropriate affect Skin exam: PRESENT: dry Results Laboratory Results: 05/24/19 06:30 05/24/19 06:30 Assessment & Plan - Plan Summary Plan Summary: doing well passing flatus isak full liquids ok to dc home after bm, today or in am.
--- NOTE | 2019-05-26 09:28 | PDOC DISCHARGE SUMMARY ---
General - Admit/Disc Date/PCP Admission Date/Primary Care Provider: 05/23/19 05:23 DILCIA MONTGOMERY MD Discharge Date: 05/26/19 - Discharge Diagnosis Final Diagnosis: colon mass - Assessment Summary: pt is a 74 y/o male, admitted for elective colon resection for mass in left colon underwent procedure on day of admission and isak well had a routein post op course initially started on clear liquids which was advanced to full liquids when he started passing flatus now isak full lqiuids and had a bm today ready for dc home today. - Additional Information Resuscitation Status: Full Code Discharge Diet: As Tolerated, Full Liquids Discharge Activity: Activity As Tolerated, No Lifting Over 10 Pounds - needs a f/u iwth fl in 7-10 days Referrals: LUCINDA ZAVALA MD [ACTIVE STAFF] - 06/03/19 8:30 am Home Medications: Finasteride 5 mg PO DAILY 10/23/13 Omeprazole 1 cap PO DAILY 10/23/13 Pravastatin Sodium [Pravachol] 40 mg PO QHS 10/23/13 Amlodipine Besylate [Norvasc 5 mg Tablet] 5 mg PO DAILY 05/21/19 Hydrochlorothiazide [Hydrodiuril 25 mg Tablet] 25 mg PO QAM 05/21/19 Tamsulosin HCl [Flomax 0.4 mg Cap.sr] 0.4 mg PO DAILY 05/21/19 Aspirin [Adult Aspirin Regimen] 81 mg PO DAILY 05/23/19 Krill/[place]-3/Dha/Epa/Lipids [Krill Oil 300 mg Softgel] 1 each PO DAILY 05/23/19 Losartan Potassium 100 mg PO DAILY 05/23/19 History of Present Illiness History of Present Illness: KIMBERLI JAY is a 74 year old male Physical Exam Vital Signs: Temp Pulse Resp BP Pulse Ox 98.9 F 68 16 150/98 H 94 05/26/19 07:43 05/26/19 07:43 05/26/19 07:43 05/26/19 07:43 05/26/19 07:43 Intake & Output 05/25/19 05/26/19 05/27/19 06:59 06:59 06:59 Intake Total 3580 3120 Output Total 4629 840 Balance -1095 2280 Weight 94 kg 91.7 kg Results Laboratory Results: WBC 8.8 10^3/uL (4.0-10.5) 05/24/19 06:30 RBC 4.32 10^6/uL (4.35-5.55) L 05/24/19 06:30 Hgb 13.3 g/dL (13.5-17.0) L 05/24/19 06:30 Hct 37.9 % (37.9-51.0) 05/24/19 06:30 MCV 88 fl (80-97) 05/24/19 06:30 MCH 30.8 pg (27.0-33.4) 05/24/19 06:30 MCHC 35.1 g/dL (32.0-36.0) 05/24/19 06:30 RDW 14.2 % (11.5-14.0) H 05/24/19 06:30 Plt Count 197 10^3/uL (150-450) 05/24/19 06:30 Lymph % (Auto) 12.9 % (13-45) L 05/24/19 06:30 [place] % (Auto) 9.3 % (3-13) 05/24/19 06:30 Eos % (Auto) 0.1 % (0-6) 05/24/19 06:30 Baso % (Auto) 0.3 % (0-2) 05/24/19 06:30 Absolute Neuts (auto) 6.8 10^3/uL (1.7-8.2) 05/24/19 06:30 Absolute Lymphs (auto) 1.1 10^3/uL (0.5-4.7) 05/24/19 06:30 Absolute Monos (auto) 0.8 10^3/uL (0.1-1.4) 05/24/19 06:30 Absolute Eos (auto) 0.0 10^3/uL (0.0-0.6) 05/24/19 06:30 Absolute Basos (auto) 0.0 10^3/uL (0.0-0.2) 05/24/19 06:30 Seg Neutrophils % 77.4 % (42-78) 05/24/19 06:30 Sodium 134.7 mmol/L (137-145) L 05/24/19 06:30 Potassium 3.4 mmol/L (3.6-5.0) L 05/24/19 06:30 Chloride 107 mmol/L (98-107) 05/24/19 06:30 Carbon Dioxide 22 mmol/L (22-30) 05/24/19 06:30 Anion Gap 6 (5-19) 05/24/19 06:30 BUN 12 mg/dL (7-20) 05/24/19 06:30 Creatinine 0.82 mg/dL (0.52-1.25) 05/24/19 06:30 Est GFR ( Amer) > 60 (>60) 05/24/19 06:30 Est GFR (MDRD) Non-Af > 60 (>60) 05/24/19 06:30 Glucose 111 mg/dL (75-110) H 05/24/19 06:30 Calcium 9.2 mg/dL (8.4-10.2) 05/24/19 06:30 Blood Type O POSITIVE 05/23/19 06:17 Antibody Screen NEGATIVE 05/23/19 06:17
[2019-05-26] MEDS: FAMOTIDINE INJ/PF 20 MG/2 ML SDV IV SCH (10:08)
[2019-05-26] MEDS: FINASTERIDE 5 MG TABLET PO SCH (10:10)
[2019-05-26 11:06] VITALS: BP 156/93
== END 2019-05-26 11:28 | disposition home or self-care (01) | DRG 331 ==
LOC: INOR 05:23 → 4S 11:50
PROVIDERS: ADMIT Surgery; ATTEND Surgery
PROC: 0DTM4ZZ Resection of Descending Colon, Percutaneous Endoscopic Approach (ICD-10-PCS; 2019-05-23)
PROC: 0DTN4ZZ Resection of Sigmoid Colon, Percutaneous Endoscopic Approach (ICD-10-PCS; principal; 2019-05-23 07:30)
DX: K63.89 Other specified diseases of intestine (principal); E66.9 Obesity, unspecified; I10 Essential (primary) hypertension; M19.90 Unspecified osteoarthritis, unspecified site; N40.0 Benign prostatic hyperplasia without lower urinary tract symptoms; K21.9 Gastro-esophageal reflux disease without esophagitis; K44.9 Diaphragmatic hernia without obstruction or gangrene; I25.10 Atherosclerotic heart disease of native coronary artery without angina pectoris; Z88.2 Allergy status to sulfonamides; Z98.890 Other specified postprocedural states; Z87.891 Personal history of nicotine dependence; Z79.899 Other long term (current) drug therapy; Z68.27 Body mass index [BMI] 27.0-27.9, adult; Z79.82 Long term (current) use of aspirin; Z82.49 Family history of ischemic heart disease and other diseases of the circulatory system
CPT/HCPCS: 36415; 80048; 840; 84132; 85025; 86850; 86900; 86901; 88307; 94799; J0131; J0330; J0690; J1100; J1170; J1644; J2060; J2250; J2270; J2370; J2405; J2704; J3010; J3480; J3490; J7060; S0028